=== PATIENT | male | born 1965 | race Caucasian/White ===

== ENCOUNTER 2018-09-22 14:30 | Day surgery (SDC) | payer OTHER ==
[2018-09-21 18:14] VITALS: BMI 27.3
[2018-09-22] MEDS ORDERED: ACETAMINOPHEN 1000 MG/100 ML VIAL (NON FORMULARY) IVPB ONE (15:03)
--- NOTE | 2018-09-22 15:05 | HP ---
History & Physical Update - History History: No Change - Physical Physical: No Change - Assessment Assessment: No Change - Plan Plan: No Change
[2018-09-22] MEDS ORDERED: IBUPROFEN 800 MG/8 ML IJ IVPB SCH (15:15)
[2018-09-22] MEDS ORDERED: DEXTROSE 5%-0.45% SALINE 1,000 ML IV SCH (15:15)
[2018-09-22] MEDS ORDERED: ceFAZolin SODIUM 1 GM VIAL IVPB ONE (15:50)
[2018-09-22] MEDS ORDERED: BACITRACIN 15 GM TUBE TOPICAL OINTMENT ONE (16:03)
[2018-09-22 18:37] VITALS: BP 148/90; PULSE 75; TEMP 98
--- NOTE | 2018-09-26 15:08 | PATH ---
Surgical Pathology Report Patient Name: KE GRIGGS [facility]. Rec. #: [id number] /Age/Gender: 1965 (Age: 53) / M Account: [id number] Location: [facility] SURGICAL Taken: 09/22/2018 Received: 09/25/2018 Reported: 09/26/2018 Physicians: Clay Rivera M.D. Specimen(s) Received PENILE WART Clinical History Penile condyloma Final Diagnosis CONDYLOMA, EXCISION: CONDYLOMA ACUMINATUM. CAUTERY ARTIFACT PRESENT. Electronically Signed Kannan Stroud M.D. Gross Description Received in formalin labeled "condyloma," is a 1.2 x 0.7 x 0.3 cm arciniega brown skin lesion. The specimen is submitted in toto in one cassette. 09/25/201809/25/2018
--- NOTE | 2018-10-20 07:58 | OP ---
DATE OF OPERATION: 09/22/2018 PREOPERATIVE DIAGNOSIS: Condyloma of the penis and scrotum. POSTOPERATIVE DIAGNOSIS: Condyloma of the penis and scrotum. PROCEDURE: Carbon dioxide laser fulguration of condyloma. SURGEON: Clay Rivera MD ESTIMATED BLOOD LOSS: Minimal. PREOPERATIVE INDICATIONS: The patient has multiple large condyloma along the penis and the scrotum. He comes to the OR for laser fulguration. THE OPERATION: The patient was brought to the OR, placed on the table in the supine position, given general anesthesia and IV antibiotics, and then, groin was prepped and draped sterilely. Time-out was performed. Multiple large condyloma were seen throughout the penis as well as the base of the penis on the pubis and scrotum and in the creases on the sides of the scrotum. Using the CO2 laser, these were all fulgurated. Wounds were dressed with Bacitracin ointment. Patient was woken up. Flaquita [id number]
== END 2018-09-22 18:15 | disposition home or self-care (01) ==
LOC: JASU-SURG 14:30
PROVIDERS: ATTEND Urology
PROC: 0V5SXZZ Destruction of Penis, External Approach (ICD-10-PCS; principal; 2018-09-22 14:30)
DX: A63.0 Anogenital (venereal) warts (principal)
CPT/HCPCS: 88305-TC; 94760